=== PATIENT | female | born 2000 | race Caucasian/White ===

== ENCOUNTER 2024-01-12 13:30 | Emergency (ER) | payer MEDICARE, SELFPAY ==
[2024-01-12 13:30] VITALS: BP 136/85; PULSE 90; RESP 16; TEMP 36.4; O2SAT 100
--- NOTE | 2024-01-12 13:38 | ED.FEMALEGU ---
HPI - Female Genitourinary General Chief complaint: Urogenital-Female Stated complaint: vaginal bleeding Time Seen by Provider: 01/12/24 13:36 Patient is deaf and we are able to write on paper and she can read lips Source: patient Mode of arrival: ambulatory Limitations: no limitations History of Present Illness HPI Narrative: patient is a 23-year-old female with no period for 7 months. She started her menstrual cycle today. She is having lots of cramps. She came to the emergency room for evaluation. Home testing has been negative. Onset (ago): day(s) (1) Location of symptoms: other ( Diffuse abdomen lower more than upper) Severity: moderate Female Urogenital Radiation: Non-Radiating Severity scale (1-10): 3 Quality of pain: cramping Consistency: constant Vaginal discharge: none Vaginal bleeding: moderate, bright red, clots and # pads per day (1) Exacerbating factors: none Relieving factors: none Associated symptoms: abdominal pain Treatment prior to arrival: none Sexual activity: Yes Patient : No Possible : unsure if and at home test negative Related Data Home Medications Medication Instructions Recorded Confirmed No Home Medications 01/12/24 01/12/24 Allergies Allergy/AdvReac Type Severity Reaction Status Date / Time No Known Allergies Allergy Verified 01/12/24 13:35 Review of Systems Review of Systems: All systems reviewed & are unremarkable except as noted in HPI and below Constitutional: Constitutional: Reports no additional constitutional complaints Eyes: Eyes: Reports no additional eye complaints ENT: Reports system reviewed and no additional complaints, except as documented Cardiovascular: Cardiovascular: Reports no additional cardiovascular complaints Respiratory: Respiratory: Reports no additional respiratory complaints Gastrointestinal: Gastrointestinal: Reports no additional gastrointestinal complaints Genitourinary: Genitourinary: Reports no additional female genitourinary complaints Musculoskeletal: Musculoskeletal: Reports no additional musculoskeletal complaints Integumentary/Breasts: Skin/Breast: Reports system reviewed and no additional complaints, except as docu Neurologic: Reports system reviewed and no additional complaints, except as documented Psychiatric: Psychiatric: Reports no additional psychiatric complaints Endocrine: Endocrine: Reports no additional endocrine complaints Hematologic/Lymphatic: Hematologic/Lymphatic: Reports no additional hematologic/lymphatic complaints Allergic/Immunologic: Allergic/Immunologic: Reports no additional allergic/immunologic complaints Exam Const: General: healthy appearing Nutritional Appearance: well nourished Orientation/consciousness: patient oriented x3 HENMT: Head: normal to inspection Ears: external ears normal Face/Nose/Sinus: Normal external nose present Eyes: Conjunctivae: conjunctivae normal Pupils: Equal, round and reactive pupils present EOM: EOMs intact bilaterally Neck: Neck: normal visual inspection Chest: Chest palpation & inspection: normal inspection of the chest Resp: Effort & Inspection: normal respiratory effort and not labored Auscultation: clear to auscultation bilaterally Cardio: Rate: regular rate Rhythm: regular rhythm Heart sounds: no murmurs GI: Inspection: non-distended GI Palp: Yes Soft to palpation, Yes Tenderness to palpation present (GI) ( diffuse abdomen and there is gas pockets felt which are tender), No Guarding due to palpation present (GI), No Rigid due to palpation, No Hernia present, No Palpable mass present and No Rebound tenderness present Auscultation: Hyperactive bowel sounds present : General: Yes bladder normal to palpation Back/Spine/Pelvis: Back: no CVA tenderness Skin: General skin exam: normal color Rashes: no rashes Wounds: no wounds Neuro: General: patient oriented x3 Cranial nerves: Yes Nystagmus not present Speec
[2024-01-12 14:31] LABS: Basophils Absolute Auto 0.04 K/mm3 (0.00-0.10); Basophils Percent Auto 0.7 % (0.0-1.0); Eosinophils Absolute Auto 0.29 K/mm3 (0.02-0.50); Hematocrit 43.7 % (35.0-49.0); Hemoglobin 14.1 g/dL (12.0-15.0); Immature Granulocyte Absolute 0.03 K/mm3 (0.00-0.00); Immature Granulocyte Percent A 0.5 % (0.0-0.0); Lymphocytes Absolute Auto 1.16 K/mm3 (1.10-4.50); Mean Corpuscular HGB Conc 32.3 g/dL (32-36); Mean Corpuscular Hemoglobin 29.1 pg (27.0-31.0); Mean Corpuscular Volume 90.3 fL (78.0-102.0); Mean Platelet Volume 10.2 fl (9.2-11.8); Monocytes Absolute Auto 0.44 K/mm3 (0.10-0.90); Monocytes Percent Auto 7.6 % (2.0-11.0); Neutrophils Absolute Auto 3.85 K/mm3 (1.70-7.20); Neutrophils Percent Auto 66.2 % (50.0-70.0); Platelet Count Result 202 K/mm3 (150-420); Red Blood Count 4.84 M/mm3 (4.20-5.40); Red Cell Distribution Width 12.4 % (11.6-14.4); White Blood Count 5.8 K/mm3 (4.8-10.8)
[2024-01-12 14:42] LABS: Bilirubin Urine Negative (Negative); Blood Urine 3+ (Negative); Glucose Urine UA Negative (Negative); Ketones Urine Negative (Negative); Leukocyte Esterase Ur Trace LEU/UL (Negative); Nitrate Urine Negative (Negative); Protein Urine 2+ (Negative); Specific Grav Ur >= 1.030 (1.010-1.020); Urobilinogen Urine 0.2 mg/dL (0.2-1.0)
[2024-01-12 14:44] LABS: Add Urine Microscopic? YES; Appearance Urine Cloudy (Clear); Color Urine Red (Yellow); RBC Urine >100 /hpf (0-2)
[2024-01-12 14:45] LABS: Pregnancy On Board Control Positive; Urine Pregnancy Test Negative
[2024-01-12 14:54] LABS: Alanine Aminotransferase 10 U/L (14-59); Albumin Level 3.9 g/dL (3.4-5.0); Alkaline Phosphatase 41 U/L (46-116); Anion Gap 5 mmol/L (4-12); Aspartate Amino Transferase 11 U/L (15-37); Beta HCG Quantitative < 1.00 mIU/mL (0-6); Bilirubin,Total 0.5 mg/dL (0.00-1.00); Blood Urea Nitrogen 11 mg/dL (7-18); Carbon Dioxide 31 mmol/L (21-32); Chloride 104 mmol/L (98-108); Estimated CRCL calculation 80 ml/min; Estimated Glomerular Filt Rate > 60; Glucose 83 mg/dL (70-99); Lipase 37 U/L (16-77); Osmolality Calculated 288 mOsm/kg (285-295); Potassium 3.7 mmol/L (3.5-5.1); Sodium 140 mmol/L (136-145); Total Protein 7.4 g/dL (6.4-8.2)
[2024-01-12 15:13] VITALS: BP 114/76; PULSE 87; RESP 20; TEMP 36.6; O2SAT 98
--- NOTE | 2024-01-16 13:37 | PC.NURSE ---
final urine culture report reviewed. E. coli isolated. erp, dr thorpe, reviewed culture report and gave order for cipro. susceptibility report shows sensitivity to cipro. pt notified of culture report and instructed to start new prescription for tx of uti. pt requested rx be sent to [facility] in [place]. cipro 500mg bid for 7 days called in to [facility] in [place]. pt instructed to f/u with pmd re: uti dx. pt states she has an appt on 01/27.
== END 2024-01-12 15:13 | disposition home or self-care (01) ==
PROVIDERS: Emergency Provider Emergency Medicine
DX: N94.6 Dysmenorrhea, unspecified (principal); N91.2 Amenorrhea, unspecified
CPT/HCPCS: 36415; 80053; 81001; 81025; 83690; 84702; 85025; 87077; 87086; 87088; 87186; 99283

== ENCOUNTER 2024-01-28 14:05 | Outpatient (CLI) | payer MEDICARE, SELFPAY ==
[2024-01-28 14:25] LABS: Basophils Absolute Auto 0.05 K/mm3 (0.00-0.10); Basophils Percent Auto 0.9 % (0.0-1.0); Eosinophils Absolute Auto 0.22 K/mm3 (0.02-0.50); Eosinophils Percent Auto 3.8 % (1.0-6.0); Hematocrit 41.3 % (35.0-49.0); Hemoglobin 13.7 g/dL (12.0-15.0); Immature Granulocyte Absolute 0.02 K/mm3 (0.00-0.00); Immature Granulocyte Percent A 0.3 % (0.0-0.0); Lymphocytes Absolute Auto 1.58 K/mm3 (1.10-4.50); Mean Corpuscular HGB Conc 33.2 g/dL (32-36); Mean Corpuscular Volume 90.4 fL (78.0-102.0); Mean Platelet Volume 10.2 fl (9.2-11.8); Monocytes Percent Auto 5.1 % (2.0-11.0); Neutrophils Absolute Auto 3.69 K/mm3 (1.70-7.20); Neutrophils Percent Auto 62.9 % (50.0-70.0); Platelet Count Result 222 K/mm3 (150-420); Red Blood Count 4.57 M/mm3 (4.20-5.40); Red Cell Distribution Width 12.6 % (11.6-14.4); White Blood Count 5.9 K/mm3 (4.8-10.8)
[2024-01-28 14:35] LABS: Appearance Urine Clear (Clear); Bilirubin Urine Negative (Negative); Blood Urine Negative (Negative); Color Urine Light Yellow (Yellow); Glucose Urine UA Negative (Negative); Ketones Urine Negative (Negative); Leukocyte Esterase Ur Negative (Negative); Nitrate Urine Negative (Negative); Protein Urine Negative (Negative); Specific Grav Ur 1.025 (1.010-1.020); Urobilinogen Urine 0.2 mg/dL (0.2-1.0); pH Urine 6.5 (5.0-8.0)
[2024-01-28 14:42] LABS: Add Urine Microscopic? NO
[2024-01-28 14:54] LABS: Alanine Aminotransferase 10 U/L (14-59); Alkaline Phosphatase 31 U/L (46-116); Anion Gap 8 mmol/L (4-12); Aspartate Amino Transferase 13 U/L (15-37); Bilirubin,Total 0.7 mg/dL (0.00-1.00); Blood Urea Nitrogen 13 mg/dL (7-18); Carbon Dioxide 28 mmol/L (21-32); Chloride 104 mmol/L (98-108); Estimated Glomerular Filt Rate > 60; Glucose 85 mg/dL (70-99); Osmolality Calculated 289 mOsm/kg (285-295); Sodium 140 mmol/L (136-145); Total Protein 7.5 g/dL (6.4-8.2)
[2024-01-28 15:10] LABS: Pregnancy On Board Control Positive; Urine Pregnancy Test Negative
[2024-01-28 15:27] LABS: Thyroid Stimulating Hormone Reflex 0.99 u/IU/mL (0.36-3.74)
[2024-01-28 15:28] LABS: HIV 1 P24 AG Negative (Negative); HIV 1/2 AB Negative (Negative)
[2024-01-29 14:13] LABS: RPR Screen NON-REACTIVE (NON-REACTIVE)
[2024-01-29 22:08] LABS: FSH 5.8 mIU/mL; LH 17.7 mIU/mL; Prolactin 6.9 ng/mL
[2024-01-30 06:03] LABS: Hepatitis C Virus Antibody NON-REACTIVE (NON-REACTIVE)
== END 2024-01-28 14:06 | disposition home or self-care (01) ==
LOC: CHSLAB 14:09
PROVIDERS: PCP Nurse Practitioner Family; Visit Provider Nurse Practitioner Family
DX: Z30.011 Encounter for initial prescription of contraceptive pills (principal); N91.2 Amenorrhea, unspecified; N94.6 Dysmenorrhea, unspecified; Z11.3 Encounter for screening for infections with a predominantly sexual mode of transmission; R39.9 Unspecified symptoms and signs involving the genitourinary system
CPT/HCPCS: 36415; 80053; 81003; 81025; 83001; 83002; 84146; 84443; 85025; 86592; 86695; 86696; 86803; 87086; 87806

== ENCOUNTER 2024-03-31 12:40 | Emergency (ER) | payer MEDICARE, SELFPAY ==
--- NOTE | ~2024-03-31 | XR_ITS ---
EXAMINATION: XR_[id number]_CR DATE: 03/31/2024 13:12 INDICATION: Right-sided neck pain. TECHNIQUE: 3 views of cervical spine were obtained. COMPARISON: None. FINDINGS: There is 3 degrees dextrocurvature of cervical spine. Vertebral body heights and interverte bral disc heights are normal. The facet joints are unremarkable. No central canal stenosis or prevert ebral soft tissue swelling. A right-sided cochlear implant is noted. IMPRESSION: 1. No etiology for the patient's symptoms. Reviewed, dictated and finalized at location A.
--- NOTE | ~2024-03-31 | XR_ITS ---
XR chest 1V Ordering provider: Arnulfo De Los Santos MD History: 23 years Female with . chest pain/sob . Comparison: None. FINDINGS: MEDIASTINUM: The cardiac silhouette is not enlarged. LUNGS: No infiltrates, effusions or pneumothorax. OTHER: No free air under the diaphragm. IMPRESSION: No acute cardiopulmonary pathology. Reviewed, dictated and finalized at location A.
[2024-03-31 12:42] VITALS: BP 117/76; PULSE 71; RESP 20; TEMP 36.6; O2SAT 100
[2024-03-31 12:47] VITALS: BP 117/76; PULSE 71; RESP 20; TEMP 36.6; O2SAT 100
[2024-03-31] MEDS: KETOROLAC (*BKC) 60 MG/2 ML VIAL IM (13:08)
[2024-03-31] MEDS: CYCLOBENZAPRINE HCL 10 MG TABLET PO (13:08)
[2024-03-31 14:27] VITALS: BP 92/52; PULSE 50; RESP 18; TEMP 36.6; O2SAT 100
--- NOTE | 2024-03-31 14:34 | ED.NECK ---
HPI - Neck Pain/Injury General Chief Complaint: Extremity Injury, Upper Stated Complaint: shoulder pain Time Seen by Provider: 03/31/24 12:48 Source: patient Mode of arrival: ambulatory Limitations: no limitations History of Present Illness HPI Narrative: patient 23-year-old female with significant past medical history presents today for neck pain. Patient most likely just slept wrong but she has neck pain the right side her neck radiates down to the upper part of her right chest. She states she also feels like she has costochondritis some pain in upper right chest wall. She says she woke up with pain there was no inciting event was which means she probably just chronic. She has never this pain past or any cervical problems past as well. complaint: neck pain Onset (ago): hour(s) Place: home Radiation: right lateral Severity: moderate Severity scale (1-10): 5 Quality: dull and stabbing Duration: constant Relieving factors: none Exacerbating factors: movement of neck Context: other ( Sleeping wrong) Associated symptoms: none Treatments prior to arrival: none Related Data Allergies Allergy/AdvReac Type Severity Reaction Status Date / Time No Known Allergies Allergy Verified 03/31/24 12:44 Review of Systems Review of Systems: All systems reviewed & are unremarkable except as noted in HPI and below Constitutional: Constitutional: Reports as per HPI Eyes: Eyes: Reports no additional eye complaints ENT: Reports system reviewed and no additional complaints, except as documented Cardiovascular: Cardiovascular: Reports no additional cardiovascular complaints Respiratory: Respiratory: Reports no additional respiratory complaints Gastrointestinal: Gastrointestinal: Reports no additional gastrointestinal complaints Genitourinary: Genitourinary: Reports no additional female genitourinary complaints Musculoskeletal: Musculoskeletal: Reports as per HPI Comments: neck pain radiates to right side Integumentary/Breasts: Skin/Breast: Reports system reviewed and no additional complaints, except as docu Neurologic: Reports system reviewed and no additional complaints, except as documented Psychiatric: Psychiatric: Reports no additional psychiatric complaints Endocrine: Endocrine: Reports no additional endocrine complaints Hematologic/Lymphatic: Hematologic/Lymphatic: Reports no additional hematologic/lymphatic complaints Allergic/Immunologic: Allergic/Immunologic: Reports no additional allergic/immunologic complaints [facility] Past Medical History Medical History Amenorrhea Deaf Dysmenorrhea Surgical History Surgical History History of cochlear implant Social History Social History Social History: vaping - yes, one cartridge lasts for 3-4 weeks (typically 9K puffs total in each cartridge) edible - marijuana gummy to help with appetite Smoking packs per day: 0 Smoking cigarettes per day: 0.0 Smoking status: Current every day smoker Tobacco type: e-cigarettes/vaping Second hand tobacco smoke exposure: Yes Alcohol intake: current Alcohol use details: very seldom, once in the last 3 months Substance use: current Substance use type: marijuana Do You Feel Safe in your Home?: Yes Lack of Transportation: No Lack of Food: Never True Current Housing: I Have Housing Concerned About Future Housing: No Difficulty Paying Gas/Electric Bills: No Difficulty Paying for Meds: No Currently Unemployed: YES Education: High School Diploma/GED Difficulty w/ Childcare or Family Care: No Living arrangements: with family Occupation/Education: unemployed Gender identity (if verbalized by the patient): Female Sexual Orientation (if Verbalized by the Patient): Straight or Heterosexual Spiritual care concerns: No Exam Con
== END 2024-03-31 15:00 | disposition home or self-care (01) ==
PROVIDERS: Emergency Provider Family Medicine; PCP Nurse Practitioner Family
DX: S13.9XXA Sprain of joints and ligaments of unspecified parts of neck, initial encounter (principal); F17.290 Nicotine dependence, other tobacco product, uncomplicated; X58.XXXA Exposure to other specified factors, initial encounter
CPT/HCPCS: 71045; 72040; 96372; 99284; A9270; J1885